=== PATIENT | male | born 1940 | race Caucasian/White ===

== ENCOUNTER 2017-04-12 08:07 | Day surgery (SDC) | payer MEDICARE, MEDICAID ==
[2017-04-12 08:51] VITALS: TEMP 97.8; BMI 33.3
--- NOTE | 2017-04-12 09:45 | CP.SDSHP ---
Same Day Surgery H & P - Previous Medical/Surgical History Cardiac: Hypertension Endocrine/Metabolic: Diabetes - Allergies Allergies: Allergies No Known Allergies Allergy (Verified 04/12/17 08:51) - Physical Exam Vital Signs: Vital Signs 04/12/17 08:42 Temperature 97.8 F Pulse Rate 65 Respiratory 19 Rate Blood Pressure 133/60 O2 Sat by Pulse 97 Oximetry - Date & Time Date: 04/12/17 Time: 09:44 Short Stay Discharge - Short Stay Discharge Admitting Diagnosis/Reason for Visit: P/H COLONIC POLYPS Disposition: HOME/ ROUTINE
[2017-04-12] MEDS ORDERED: Midazolam 2 MG/2 ML VIAL ONE (10:41)
[2017-04-12] MEDS ORDERED: Lactated Ringer's 500 ML IV SCH (11:45)
[2017-04-12 12:40] VITALS: BP 137/79; PULSE 63; RESP 15; O2SAT 100
== END 2017-04-12 12:27 | disposition home or self-care (01) ==
LOC: C.ENDO 08:07
PROVIDERS: ATTEND Colon & Rectal Surgery
DX: D12.4 Benign neoplasm of descending colon (principal); K57.90 Diverticulosis of intestine, part unspecified, without perforation or abscess without bleeding; K64.8 Other hemorrhoids
CPT/HCPCS: 45384; 82948; 88305; J2250; J7120